=== PATIENT | female | born 1985 | race Caucasian/White ===

== ENCOUNTER 2020-11-22 01:18 | Inpatient (IN) | payer OTHER ==
[2020-11-22] MEDS ORDERED: BUTORPHANOL 2 MG/1 ML INJ IV PRN ×2 (02:56)
[2020-11-22] MEDS ORDERED: LOPERAMIDE 2 MG CAP PO PRN (02:56)
[2020-11-22] MEDS ORDERED: TERBUTALINE 1 MG/1 ML INJ SUB-Q PRN (02:56)
[2020-11-22] MEDS ORDERED: METHYLERGONOVINE MALEATE 0.2 MG/ML VIAL IM PRN (02:56)
[2020-11-22] MEDS ORDERED: ePHEDrine SULFATE 50 MG/1 ML INJ IV PRN (02:56)
[2020-11-22] MEDS ORDERED: LIDOCAINE (2%) 20 MG/1 ML VIAL 20 ML MDV INFILTRATI ONE (02:56)
[2020-11-22] MEDS ORDERED: ONDANSETRON 4 MG/2 ML INJ IV PRN ×2 (02:56→05:23)
[2020-11-22] MEDS ORDERED: OXYTOCIN 10 UNIT/1 ML INJ IM PRN (02:56)
[2020-11-22] MEDS ORDERED: fentaNYL 100 MCG/2 ML INJ IV PRN (02:56)
[2020-11-22] MEDS ORDERED: CARBOPROST TROMETHAMINE 250 MCG/1 ML INJ IM PRN (02:56)
[2020-11-22] MEDS ORDERED: NALOXONE 0.4 MG/1 ML INJ IV PRN (02:56)
[2020-11-22] MEDS ORDERED: MINERAL OIL 30 ML ORAL LIQD PO PRN (02:56)
[2020-11-22] MEDS ORDERED: OXYTOCIN DRIP 30 UNITS/500 ML BAG IV SCH ×2 (03:00)
[2020-11-22] MEDS ORDERED: LACTATED RINGERS 1,000 ML IV SCH (03:00)
[2020-11-22 03:37] LABS: Hematocrit 36.1 % (30.3-42.9); Hemoglobin 12.4 gm/dl (10.1-14.3); Mean Corpuscular HGB Conc 34 % (30-34); Mean Corpuscular Volume 90 fl (79-97); Platelet Count 244 K/mm3 (140-440); Red Blood Count 4.01 M/mm3 (3.65-5.03); Red Cell Distribution Width 13.6 % (13.2-15.2)
--- NOTE | 2020-11-22 04:48 | History and Physical Report ---
History of Present Illness Date of examination: 11/22/20 Date of admission: 11/22/20 02:56 Chief complaint: "I'm having contractions" History of present illness: 35 y/o female presented to [facility] OB triage @ 38.5 wks with c/o uc x several hours. Pt admitted to active FM and denied LOF or VB. She initiated her pnc at 30 wks at [facility] . Pt was diag with PIH and GDM. Her fsbs were monitored qid and were 120s-130s throughout her . Pt's GBS is neg. Pt was admitted to L&D for delivery. Labs: O+ ab screen neg RPR neg Rubella Immune HBsAg neg HIV neg 1hr gtt- 164 Elevated 3 hr gtt GBS neg Hg 11.1, PLt 249 Past History Past Medical History: hypertension, other (GDM, ANEMIA, OBESITY) Past Surgical History: no surgical history [employer]ATH[employer] History: chlamydia Family/Genetic History: none Social history: single - Obstetrical History Expected Date of Delivery: 12/01/20 Actual Gestation: 38 Week(s) 5 Day(s) : 5 Para: 4 Hx # Term Pregnancies: 4 Number of Living Children: 4 Medications and Allergies Allergies Allergy/AdvReac Type Severity Reaction Status Date / Time No Known Allergies Allergy Unverified 11/22/20 02:30 Home Medications Medication Instructions Recorded Confirmed Last Taken Type Aspirin [Adult Aspirin] 1 tab PO DAILY 11/22/20 11/22/20 1 Day Ago History ~11/21/20 Vit-Fe Fumar-FA [ 1 tab PO DAILY 11/22/20 11/22/20 1 Day Ago History Vitamin] ~11/21/20 Active Meds: Active Medications Butorphanol Tartrate (Butorphanol 2 Mg/1 Ml Inj) 1 mg IV Q2H PRN PRN Reason: Pain, Moderate(4-6) LABOR PAIN Butorphanol Tartrate (Butorphanol 2 Mg/1 Ml Inj) 2 mg IV Q2H PRN PRN Reason: Pain , Severe (7-10) Carboprost Tromethamine (Carboprost Tromethamine 250 Mcg/1 Ml Inj) 250 mcg IM ONCE PRN PRN Reason: Uterine Bleeding Ephedrine Sulfate (Ephedrine Sulfate 50 Mg/1 Ml Inj) 10 mg IV Q2M PRN PRN Reason: Hypotension Fentanyl (Fentanyl 100 Mcg/2 Ml Inj) 100 mcg IV Q2H PRN PRN Reason: Pain,Severe (7-10) LABOR PAIN Oxytocin/Sodium Chloride (Pitocin/Ns 30 Unit/500ml) 30 units in 500 mls @ 2 mls/hr IV TITR VERONICA; Protocol Lactated Ringer's (Lactated Ringers) 1,000 mls @ 125 mls/hr IV DIRECT VERONICA Last Admin: 11/22/20 03:54 Dose: 125 mls/hr Documented by: Oxytocin/Sodium Chloride (Pitocin/Ns 30 Unit/500ml) 30 units in 500 mls @ 40 mls/hr IV TITR VERONICA; Protocol Loperamide HCl (Loperamide 2 Mg Cap) 2 mg PO ONCE PRN PRN Reason: give with Hemabate Methylergonovine Maleate (Methylergonovine Maleate 0.2 Mg/Ml Vial) 0.2 mg IM ONCE PRN PRN Reason: Uterine Bleeding Mineral Oil (Mineral Oil 30 Ml Oral Liqd) 30 ml PO QHS PRN PRN Reason: Constipation Naloxone HCl (Naloxone 0.4 Mg/1 Ml Inj) 0.1 mg IV Q2MIN PRN PRN Reason: Res Rate </= 8 or 02 SAT < 92% Ondansetron HCl (Ondansetron 4 Mg/2 Ml Inj) 4 mg IV Q8H PRN PRN Reason: Nausea And Vomiting Oxytocin (Oxytocin 10 Unit/1 Ml Inj) 10 unit IM ONCE PRN PRN Reason: Uterine Bleeding Terbutaline Sulfate (Terbutaline 1 Mg/1 Ml Inj) 0.25 mg SUB-Q ONCE PRN PRN Reason: Hyperstimulation/Hypertonicity Review of Systems All systems: negative Eyes: deferred Ears, nose, mouth and throat: deferred Breasts: normal - Vital Signs Vital signs: Vital Signs Temp Pulse Resp BP 99.1 F 71 18 167/79 11/22/20 02:32 11/22/20 02:32 11/22/20 02:32 11/22/20 02:32 Temp Pulse Resp BP Pulse Ox 99.1 F 62 18 154/68 99 11/22/20 02:32 11/22/20 04:32 11/22/20 02:32 11/22/20 03:06 11/22/20 04:32 - Physical Exam Breasts: Positive: normal Abdomen: Positive: normal appearance, soft, normal bowel sounds, other (GRAVID) Genitourinary (Female): Positive: normal external genitalia, normal perenium Vulva: both: normal Vagina: Positive: normal moisture Uterus: Positive: enlarged, normal contour, other (GRAVID) Adnexa: both: normal Anus/Rectum: Positive: normal perianal skin Extremities: Positive: normal - Obstetrical FHR: auscultation normal, category 1 Cervical Dilatation: 8 Cervical Effacement Percentage: 80 station: -2 Uterine Contraction Frequency (min): 6-8 Uterine Contraction Pattern: Irregular Uterine Tone Measurement Phase: Resting Uterine Contraction Intensity: Moderate Results Result Diagrams: 11/22/20 02:56 Abnormal lab results 11/22/20 Range/Units 02:56 WBC 13.9 H (4.5-11.0) K/mm3 All other labs normal. Assessment and Plan A: IUP@ 38.5 wks GDM, PIH, Obesity, anemia P: Admit to L&D Continuous monitoring FSBS AC & HS Notify NICU Anticipate - Patient Problems (1) Term Current Visit: Yes Status: Acute (2) PIH ( induced hypertension) Current Visit: Yes Status: Acute (3) GDM (gestational diabetes mellitus) Current Visit: Yes Status: Acute (4) Obesity Current Visit: Yes Status: Acute
[2020-11-22] MEDS ORDERED: hydrALAZINE 20 MG/1 ML INJ ONE (05:02)
[2020-11-22] MEDS ORDERED: LANOLIN/ZINC/DIMETHICONE (LANSINOH) 7 GM TP PRN (05:23)
[2020-11-22] MEDS ORDERED: MAGNESIUM HYDROXIDE (MOM) ORAL LIQD UDC PO PRN (05:23)
[2020-11-22] MEDS ORDERED: diphenhydrAMINE 25 MG CAP PO PRN (05:23)
[2020-11-22] MEDS ORDERED: PROMETHAZINE 25 MG RECT SUPP PR PRN (05:23)
[2020-11-22] MEDS ORDERED: PROMETHAZINE 25 MG TAB PO PRN (05:23)
[2020-11-22] MEDS ORDERED: WITCH HAZEL/ GLYCERIN PAD TP PRN (05:23)
--- NOTE | 2020-11-22 05:37 | Procedure Note ---
OB Delivery Note - Delivery Date of Delivery: 11/22/20 Surgeon: LAURA GRIMM Estimated blood loss: 100cc - Vaginal Delivery presentation: vertex Delivery position: OA Intrapartum events: meconium Delivery induction: none Delivery monitor: external FHT, external uterine Route of delivery: Delivery placenta: spontaneous Delivery cord: nuchal cord, 3 umbilical vessels Episiotomy: none Delivery laceration: none Anesthesia: none Delivery comments: Called to for delivery. SVE 10/100%/+2 and pt was pushing. of a live viable female in OA position. Loose nuchal cord x1 was reduced over infants head and infant's head then shoulders were delivered with ease over mec stained fluid. was immediately placed on mom's chest for skin to skin bonding while baby was bulb suctioned by the NICU nurse. Cord was clamped x 2 and cut by health underwriter then infant was taken to the warmer by NICU nurse for an initial asses. 8/9. Spontaneous delivery of an intact placenta with CVX3. FF @ U2 with fundal massage and IV Pitocin. An exploration of tears revealed none. EBL 100cc. FW [id number] Gms. Mom and baby left in stable condition with L&D nurse. - A at 1 minute: 8 at 5 minutes: 9 Gender: Female (FW [id number])
[2020-11-22] MEDS: IBUPROFEN 600 MG TAB PO SCH ×2 (05:53→15:18)
[2020-11-22 07:50] LABS: Alanine Aminotransferase 9 units/L (7-56); Blood Urea Nitrogen 8 mg/dL (7-17); Calcium 8.5 mg/dL (8.4-10.2); Hemolysis Index 3; Uric Acid 4.4 mg/dL (3.5-7.6)
[2020-11-22 07:51] LABS: BUN/Creatinine Ratio 13
[2020-11-22] MEDS: PRENATAL VIT27-FE FUMARATE-FOLIC ACID VIT TAB PO SCH (10:17)
[2020-11-22 19:07] LABS: Hematocrit 32.3 % (30.3-42.9); Hemoglobin 11.3 gm/dl (10.1-14.3)
[2020-11-23] MEDS: IBUPROFEN 600 MG TAB PO SCH ×4 (00:23→17:49)
[2020-11-23] MEDS: PRENATAL VIT27-FE FUMARATE-FOLIC ACID VIT TAB PO SCH (12:26)
--- NOTE | 2020-11-23 13:07 | Progress Note ---
Assessment and Plan A: day 1 S/P . P: Anticipate discharge tomorrow if patient continues to do well. Subjective - Subjective Date of service: 11/23/20 Principal diagnosis: day 1 S/P Patient reports: appetite normal, voiding normally, pain well controlled, flatus, ambulating normally, no dizzy ambulation, no nauseated [place]: doing well Objective - Vital Signs Latest vital signs: Vital Signs Temp Pulse Resp BP BP Pulse Ox 11/23/20 08:22 98.2 F 59 L 20 130/67 98 11/23/20 06:28 18 11/23/20 05:28 18 11/23/20 01:23 18 11/23/20 00:23 18 11/23/20 00:00 98.1 F 64 20 122/62 98 11/22/20 16:43 98.2 F 68 18 143/69 97 Intake and Output 11/22/20 11/23/20 11/23/20 23:59 07:59 15:59 Intake Total 240 480 240 Balance 240 480 240 Intake: Oral 240 360 240 Intake, Free Water 120 Other: Total, Intake Amount 120 360 240 # Voids Void 1 1 - Exam Cardiovascular: Present: Regular rate Lungs: Present: Clear to auscultation Abdomen: Present: normal appearance, soft, normal bowel sounds. Absent: distention, tenderness, guarding, rigidity Uterus: Present: normal, firm, fundal height below umbilicus. Absent: bogginess, tenderness Extremities: Present: normal. Absent: tenderness, edema
[2020-11-24] MEDS: IBUPROFEN 600 MG TAB PO SCH (05:27)
--- NOTE | 2020-11-24 11:00 | Progress Note ---
Assessment and Plan A: day 2 S/P . P: Discharge patient home today. Discussed with patient discharge instructions and warning signs. Advised patient to continue taking her vitamins at home. Advised patient to avoid intercourse, lifting, heavy housework. Advised patient to follow up at [facility] in 6 weeks. Patient voiced understanding of all instructions. Subjective - Subjective Date of service: 11/24/20 Principal diagnosis: day 2 S/P Patient reports: appetite normal, voiding normally, pain well controlled, flatus, ambulating normally, no dizzy ambulation, no nauseated : doing well Objective - Vital Signs Latest vital signs: Vital Signs Temp Pulse Resp BP BP Pulse Ox 11/24/20 07:59 97.8 F 61 18 123/71 98 11/24/20 06:27 18 11/24/20 05:27 18 11/24/20 00:59 98.0 F 65 20 138/67 97 11/23/20 16:22 98 F 63 18 135/65 98 Intake and Output 11/23/20 11/24/20 11/24/20 23:59 07:59 15:59 Intake Total 1200 720 Balance 1200 720 Intake: Oral 600 480 Intake, Free Water 600 240 Other: Total, Intake Amount 240 240 # Voids Void 1 1 - Exam Cardiovascular: Present: Regular rate Lungs: Present: Clear to auscultation Abdomen: Present: normal appearance, soft. Absent: distention, tenderness, guarding, rigidity Uterus: Present: normal, firm, fundal height below umbilicus. Absent: bogginess, tenderness Extremities: Present: normal. Absent: tenderness, edema
--- NOTE | 2020-11-24 11:02 | Discharge Summary ---
Providers - Providers Date of Admission: 11/22/20 02:56 Date of discharge: 11/24/20 Attending physician: RUBIO VILLARREAL MD Primary care physician: RUBIO VILLARREAL MD Hospitalization Reason for admission: active labor Delivery: Episiotomy: none Laceration: none Other procedures: none complications: none Discharge diagnosis: IUP at term delivered baby: female Pertinent studies: Labs Hospital course: Normal hospital course. Condition at discharge: Good Disposition: DC-01 TO HOME OR SELFCARE - Discharge Diagnoses (1) Term delivered Status: Acute Plan - Provider Discharge Summary Activity: routine, no sex for 6 weeks, no heavy lifting 4 weeks, no strenuous exercise Diet: routine Instructions: routine Additional instructions: Please continue taking your vitamins at home. Call your doctor immediately for: * Fever > 100.5 * Heavy vaginal bleeding ( >1 pad per hour) * Severe persistent headache * Shortness of breath * Reddened, hot, painful area to leg or breast - Follow up plan Follow up: RUBIO VILLARREAL MD [Primary Care Provider] - 6 Weeks Forms: [facility] Discharge Summary
[2020-11-24 13:34] VITALS: BP 140/72
== END 2020-11-24 14:05 | disposition home or self-care (01) | DRG 807 ==
LOC: TRG 01:18 → APU 01:20 → TRG 02:56 → LD 02:56 → OB 07:47
PROVIDERS: ADMIT Obstetrics & Gynecology; ATTEND Obstetrics & Gynecology
PROC: 10E0XZZ Delivery of Products of Conception, External Approach (ICD-10-PCS; principal; 2020-11-22)
DX: O77.0 Labor and delivery complicated by meconium in amniotic fluid (principal); Z37.0 Single live birth; O69.1XX0 Labor and delivery complicated by cord around neck, with compression, not applicable or unspecified; Z20.822 Contact with and (suspected) exposure to COVID-19; O24.429 Gestational diabetes mellitus in childbirth, unspecified control; O99.214 Obesity complicating childbirth; E66.9 Obesity, unspecified; O99.02 Anemia complicating childbirth; O13.4 Gestational [pregnancy-induced] hypertension without significant proteinuria, complicating childbirth; Z3A.38 38 weeks gestation of pregnancy; Z79.82 Long term (current) use of aspirin; Z79.899 Other long term (current) drug therapy
CPT/HCPCS: 36415; 59025; 80053; 84550; 85014; 85018; 85027; 86592; 86850; 86900; 86901; G0378; J7120; U0003